=== PATIENT | female | born 1950 | race Caucasian/White ===

== ENCOUNTER → 2024-02-27 08:08 | Outpatient (REF) | payer MEDICARE, OTHER, SELFPAY | LOC: RCS 08:08 | PROVIDERS: ATTENDING PHYSICIAN Internal Medicine Cardiovascular Disease; FAMILY PHYSICIAN Family Medicine | DX: I25.10 Atherosclerotic heart disease of native coronary artery without angina pectoris (principal); I35.1 Nonrheumatic aortic (valve) insufficiency | CPT/HCPCS: 93306 ==

== ENCOUNTER → 2025-02-11 12:54 | Outpatient (REF) | payer MEDICARE, OTHER, SELFPAY | LOC: RCS 12:54 | PROVIDERS: ATTENDING PHYSICIAN Internal Medicine Cardiovascular Disease; FAMILY PHYSICIAN Family Medicine | DX: I35.1 Nonrheumatic aortic (valve) insufficiency (principal) | CPT/HCPCS: 93306 ==

== ENCOUNTER 2025-05-20 10:00 | Outpatient (RCR) | payer MEDICARE, OTHER, SELFPAY | END 2025-05-20 23:59 | disposition home or self-care (01) | LOC: RPT 10:00 | PROVIDERS: ATTENDING PHYSICIAN Radiology Radiation Oncology; FAMILY PHYSICIAN Family Medicine | DX: I97.2 Postmastectomy lymphedema syndrome (principal); C50.412 Malignant neoplasm of upper-outer quadrant of left female breast; Z73.6 Limitation of activities due to disability; L90.5 Scar conditions and fibrosis of skin; Z17.0 Estrogen receptor positive status [ER+] | CPT/HCPCS: 97110; 97112; 97140; 97163; 97530 ==

== ENCOUNTER 2025-06-10 08:25 | Outpatient (RCR) | payer MEDICARE, OTHER, SELFPAY | END 2025-06-10 13:42 | disposition home or self-care (01) | LOC: RPT 08:25 | PROVIDERS: ATTENDING PHYSICIAN Radiology Radiation Oncology; FAMILY PHYSICIAN Family Medicine | DX: I97.2 Postmastectomy lymphedema syndrome (principal); C50.412 Malignant neoplasm of upper-outer quadrant of left female breast; Z73.6 Limitation of activities due to disability; L90.5 Scar conditions and fibrosis of skin; Z17.0 Estrogen receptor positive status [ER+] | CPT/HCPCS: 97110; 97112; 97140; 97530 ==

== ENCOUNTER → 2025-07-08 13:58 | Outpatient (REF) | payer MEDICARE, OTHER, SELFPAY | LOC: MRI 13:58 | PROVIDERS: ATTENDING PHYSICIAN Student in an Organized Health Care Education/Training Program; FAMILY PHYSICIAN Family Medicine | DX: K76.0 Fatty (change of) liver, not elsewhere classified (principal); E83.118 Other hemochromatosis | CPT/HCPCS: 74183; 76391; A9575 ==

== ENCOUNTER 2025-08-22 09:49 | Outpatient (RCR) | payer MEDICARE, OTHER, SELFPAY | END 2025-08-22 23:59 | disposition home or self-care (01) | LOC: RPT 09:49 | PROVIDERS: ATTENDING PHYSICIAN Orthopaedic Surgery; FAMILY PHYSICIAN Family Medicine | DX: M75.81 Other shoulder lesions, right shoulder (principal); M19.011 Primary osteoarthritis, right shoulder; Z73.6 Limitation of activities due to disability; M62.81 Muscle weakness (generalized) | CPT/HCPCS: 97010; 97110; 97140; 97162; 97530 ==